=== PATIENT | female | born 1995 | race Caucasian/White ===

== ENCOUNTER 2022-04-06 13:18 | Emergency (ER) | payer MEDICAID ==
[~2022-04-06] VITALS: Ht 170.2 cm; Wt 84.8 kg
[2022-04-06] VITALS (14 sets, daily range): BP systolic 109–143; BP diastolic 53–90
[2022-04-06] MEDS ORDERED: WELLBUTRIN XL300 MG PO (14:04)
[2022-04-06 14:05] LABS: HEMATOCRIT 41.4 % (37.0-47.0); HEMOGLOBIN 14.1 g/dl (12.0-16.0); IMMATURE GRANULOCYTES 0.1 % (0.0-5.0); MEAN CELL VOLUME 98.8 fL CALC (80.0-100.0); MEAN CORPUSCULAR HGB 33.7 pG CALC (26.0-32.0); MEAN CORPUSCULAR HGB CONC 34.1 g/dL CAL (32.0-36.0); NEUT# 7.52 thou/uL (2.00-7.15); RED BLOOD COUNT 4.19 mill/uL (4.20-5.60); RED CELL DISTRI WIDTH 12.2 % (11.5-15.5)
[2022-04-06] MEDS ORDERED: LEXAPRO10 MG PO (14:05)
[2022-04-06] MEDS ORDERED: XANAX0.25 MG PO (14:06)
[2022-04-06 14:16] LABS: ALBUMIN 4.6 g/dL (3.2-5.0); BILIRUBIN, TOTAL 0.7 mg/dL (0.0-1.4); BUN 9 mg/dL (7-17); BUN/CREATININE RATIO 9 (12-20 (CALC)); CARBON DIOXIDE 23 mmol/l (22-30); CREATININE 0.9 mg/dL (0.5-1.0); GFR FOR AFR.AMER. > 60 ML/MIN (>=60 (CALC)); GFR OTHER RACES > 60 ML/MIN (>=60 (CALC)); TOTAL PROTEIN 7.9 g/dL (6.3-8.2)
[2022-04-06 14:24] LABS: ALKALINE PHOSPHATASE 60 u/l (38-126); CHLORIDE 105 mmol/l (95-108); SGOT/AST 25 u/l (14-36); SODIUM 138 mmol/l (137-146)
[2022-04-06 14:33] LABS: POTASSIUM 3.6 mmol/l (3.5-5.1)
[2022-04-06 14:35] LABS: ANION GAP 14 (6-22 (CALC))
[2022-04-06 16:11] LABS: URINE BILIRUBIN - DIPSTICK NEGATIVE (NEGATIVE); URINE BLOOD DIPSTICK SMALL (NEGATIVE); URINE COLOR YELLOW; URINE GLUCOSE - DIPSTICK NEGATIVE (NEGATIVE); URINE KETONE 15 mg/dL (NEGATIVE); URINE LEUK ESTERASE NEGATIVE (NEGATIVE); URINE PH 6.5 (4.5-8.0); URINE PROTEIN - DIPSTICK NEGATIVE (NEG-TRACE)
[2022-04-06 16:14] LABS: URINE NITRITE - DIPSTICK NEGATIVE (Negative)
[2022-04-06 16:19] LABS: URINE SQUAMOUS EPITHELIAL CELL FEW EPI/hpf (0-FEW); URINE WBC 0-2 WBC/hpf (0-5)
[2022-04-06] MEDS ORDERED: TOPROL XL25 M1 PO (17:51)
== END 2022-04-06 18:40 | disposition home or self-care (01) ==
LOC: ED 13:18
PROVIDERS: Family Medicine
DX: R00.0 Tachycardia, unspecified (principal); F41.9 Anxiety disorder, unspecified; F32.A Depression, unspecified